=== PATIENT | male | born 1990 | race Caucasian/White ===

== ENCOUNTER → 2023-12-27 14:49 | Outpatient (REF) | payer BC, SELFPAY | LOC: RCS 14:49 | PROVIDERS: ATTENDING PHYSICIAN Internal Medicine Interventional Cardiology; FAMILY PHYSICIAN Internal Medicine | DX: R00.2 Palpitations (principal); Z87.891 Personal history of nicotine dependence; E10.9 Type 1 diabetes mellitus without complications | CPT/HCPCS: 93017 ==

== ENCOUNTER → 2024-02-08 16:09 | Outpatient (REF) | payer BC, SELFPAY | LOC: RCS 16:09 | PROVIDERS: ATTENDING PHYSICIAN Internal Medicine Interventional Cardiology; FAMILY PHYSICIAN Internal Medicine | DX: Z87.891 Personal history of nicotine dependence (principal); R00.2 Palpitations; Z13.6 Encounter for screening for cardiovascular disorders; I10 Essential (primary) hypertension; E78.2 Mixed hyperlipidemia; E10.9 Type 1 diabetes mellitus without complications; N18.9 Chronic kidney disease, unspecified; E66.01 Morbid (severe) obesity due to excess calories | CPT/HCPCS: 93306 ==

== ENCOUNTER → 2025-02-04 08:53 | Outpatient (REF) | payer OTHER, SELFPAY | LOC: EMG 08:53 | PROVIDERS: ATTENDING PHYSICIAN Orthopaedic Surgery; FAMILY PHYSICIAN Internal Medicine | DX: G54.0 Brachial plexus disorders (principal) | CPT/HCPCS: 95886; 95911 ==